=== PATIENT | female | born 1945 | race Caucasian/White ===

== ENCOUNTER 2018-05-10 10:18 | Day surgery (SDC) | payer OTHER ==
[2018-05-10] MEDS ORDERED: GLUCAGON HCL 1 MG VIAL IVP PRN (10:46)
[2018-05-10] MEDS ORDERED: HEPARIN 10,000 UNIT/10 ML MDV (1,000 UNIT/ML) IVP PRN (10:46)
[2018-05-10] MEDS ORDERED: NALOXONE HCL 0.4 MG/ML INJ IVP PRN (10:46)
[2018-05-10] MEDS ORDERED: fentaNYL 100 MCG/2 ML INJ IVP PRN (10:46)
[2018-05-10] MEDS ORDERED: FLUMAZENIL 0.5 MG/5 ML MDV IVP PRN (10:46)
[2018-05-10] MEDS ORDERED: MIDAZOLAM 2 MG/2 ML VIAL IVP PRN (10:46)
[2018-05-10] MEDS ORDERED: PROTAMINE SULFATE 50 MG/5 ML VIAL IVP PRN (10:46)
[2018-05-10] MEDS ORDERED: MEPERIDINE 25 MG/ML SYR IVP PRN (10:46)
[2018-05-10] MEDS ORDERED: ALTEPLASE 2 MG VIAL IVP PRN (10:46)
[2018-05-10] MEDS ORDERED: ceFAZolin 2 GM/DEXTROSE 100 ML IV ONE (10:46)
[2018-05-10] MEDS ORDERED: NS 1,000 ML IV SCH (11:00)
[2018-05-10 11:20] LABS: INR 0.91 (0.83-1.16); PROTIME(PATIENT) 12.5 SEC (12.0-15.0)
[2018-05-10] MEDS ORDERED: LIDOCAINE 1% 300 MG/30 ML SDV ONE (11:49)
[2018-05-10] MEDS ORDERED: oxyCODONE IR 5 MG TAB PO PRN (13:14)
[2018-05-10] MEDS ORDERED: ONDANSETRON 4 MG/2 ML VIAL IVP PRN (13:14)
--- NOTE | 2018-05-10 13:17 | PDRADPRE ---
Radiology History & Physical Indication for procedure: cancer (Mediastinal Mass) Allergies/Adverse Reactions: No Known Allergies Allergy (Unverified 05/09/18 11:07) Mental status: A&Ox3 Heart exam: regular rate and rhythm Lungs exam: clear to auscultation Mallampati Score: Class 2
--- NOTE | 2018-05-10 13:17 | PDPROPOC ---
Sedation Plan of Care Sedation Plan of Care: vital signs stable, mental status noted, patient educated of risks, benefits, alternatives, patient can tolerate sedation ASA Classification: ASA 2 Planned drugs: fentanyl, midazolam Mallampati Score: Class 1 Mallampati Reference Image: Patient passed 3-3-2 rule?: Yes
--- NOTE | 2018-05-10 13:18 | PDRADPN ---
Radiology Procedure Note Date of Procedure: 05/10/18 Radiologist: Ajay Tomlin Anesthesia: IV Sedation Pre-op Diagnosis: Mediastinal mass Post-op Diagnosis: Mediastinal mass Indication: Mediastinal mass Procedure: CT guided biopsy Finding(s): 18 ga cores sent in formalin and saline for possible flow cytometry as clinically warranted. Inf/Abcess present in the surg proc area at time of surgery?: No
[2018-05-10] MEDS ORDERED: ACETAMINOPHEN 500 MG TAB PO ONE (14:26)
[2018-05-10 15:12] VITALS: BP 113/64
== END 2018-05-10 15:32 | disposition home or self-care (01) ==
LOC: FIMAGING 10:18
PROVIDERS: ATTEND Surgery
PROC: BW241ZZ Computerized Tomography (CT Scan) of Chest and Abdomen using Low Osmolar Contrast (ICD-10-PCS; principal; 2018-05-10 13:30)
PROC: 0WBC3ZX Excision of Mediastinum, Percutaneous Approach, Diagnostic (ICD-10-PCS; principal; 2018-05-10 13:30)
DX: R22.2 Localized swelling, mass and lump, trunk (principal)
CPT/HCPCS: 88184-90; 88185-91; J0690; J2250; J2310; J3010

== ENCOUNTER → 2018-06-12 | Outpatient (CLI) | payer OTHER | LOC: FIMAGING 14:13 | PROVIDERS: ATTEND Internal Medicine Hematology & Oncology | DX: Z12.31 Encounter for screening mammogram for malignant neoplasm of breast (principal) ==

== ENCOUNTER 2018-07-16 14:00 | Day surgery (SDC) | payer OTHER ==
--- NOTE | 2018-07-03 09:20 | GHP ---
DATE OF ADMISSION: 07/04/2018 CHIEF COMPLAINT: Mediastinal mass. HISTORY OF PRESENT ILLNESS: This is a 73-year-old female with a history of a mediastinal mass that has been present for approximately a year. 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 Her last CT scan was on 03/04/2018, and showed that the mass had increased in size and now measures 8.8 x 5.5 x 10.4 cm. The patient reports that she is asymptomatic from her mass, she has no shortness of breath and she has normal energy levels. She denies any unintended weight loss, fevers, night sweats. PAST MEDICAL HISTORY: Osteoarthritis, hypothyroidism, irritable bowel syndrome , osteopenia. PAST SURGICAL HISTORY: Appendectomy, knee arthroscopy, tonsillectomy, wisdom teeth extraction. MEDICATION LIST: Biest touche 2.5 mg, levothyroxine 25 mcg, liothyronine 5 mcg , progesterone cream. ALLERGIES: No known drug allergies. FAMILY MEDICAL HISTORY: Positive for hypothyroidism, colon cancer, blood clots. SOCIAL HISTORY: She is a nonsmoker and does not use recreational drugs. REVIEW OF SYSTEMS: 10-point review of systems is negative, aside from what is documented in the HPI. PHYSICAL EXAM: GENERAL: This is a well-appearing 73-year-old female in no acute distress. EYES: Pupils are equal and round. No scleral icterus. HEENT : Normocephalic, atraumatic. No gross hearing deficit. Mucous membranes are moist. CARDIAC: Regular rate and rhythm, no clicks, murmurs, or rubs. RESPIRATORY: Clear to auscultation bilaterally, no increased work of breathing. MUSCULOSKELETAL: Moves all extremities equally. LYMPH: Negative cervical, supraclavicular, and axillary lymphadenopathy. NEURO: Cranial nerves 2-12 are grossly intact. She is alert and oriented x4. PSYCHIATRIC: Appropriate mood and affect. ASSESSMENT AND PLAN: This is a patient with a known mediastinal mass that is biopsy proven to be malignant. Her case was discussed at [facility] and the consensus was that the patient needs further biopsy with a mediastinoscopy. Risks and options have been fully discussed with the patient. Risks of surgery include, but are not limited to infection, bleeding, failure to obtain diagnosis , heart attack, pneumothorax, and . Patient understands and wishes to proceed. We will proceed with mediastinoscopy and biopsy. /[id number]/MODL MTDD
--- NOTE | 2018-07-16 07:06 | PDHPUP ---
History & Physical Update H&P update statement: This history and physical update is based on an assessment of the patient which was completed after admission or registration (within 24 hours), but prior to the surgery/procedure. no changes, reviewed 07/16/2018 H&P update: changes noted (no changes) H&P changes: none
[2018-07-16 08:23] LABS: PLATELET COUNT 278 10^3/uL (150-400)
--- NOTE | 2018-07-16 09:53 | PDANEPAE ---
ANE History of Present Illness mediastinoscopy ANE Past Medical History - Cardiovascular History Hx Hypertension: No Hx Arrhythmias: No Hx Chest Pain: No Hx Coronary Artery / Peripheral Vascular Disease: No Hx CHF / Valvular Disease: No Hx Palpitations: No Cardiovascular History Comment: blood pressure tends to run low - Pulmonary History Hx COPD: No Hx Asthma/Reactive Airway Disease: No Hx Recent Upper Respiratory Infection: No Hx Oxygen in Use at Home: No Hx Sleep Apnea: No Sleep Apnea Screening Result - Last Documented: Negative - Neurologic History Hx Cerebrovascular Accident: No Hx Seizures: No Hx Dementia: No - Endocrine History Hx Diabetes: No Endocrine History Comment: hyopthyroid - Renal History Hx Renal Disorders: No - Liver History Hx Hepatic Disorders: No - Neurological & Psychiatric Hx Hx Neurological and Psychiatric Disorders: No - Cancer History Hx Cancer: Yes Cancer History Comment: mediastinal mass - Congenital Disorder History Hx Congenital Disorders: No - GI History Hx Gastrointestinal Disorders: Yes Gastrointestinal History Comment: hx colitis. gluten sensitivity - Other Health History Other Health History: wears glasses. spot of rash/itch on left leg above ankle - Chronic Pain History Chronic Pain: No - Surgical History Prior Surgeries: arthroscopy left knee. appendectomy. tonsillectomy ANE Review of Systems Review of systems is: negative Review of Systems: - Exercise capacity METS (RN): 5 METS ANE Patient History - Allergies Allergies/Adverse Reactions: No Known Allergies Allergy (Verified 07/10/18 17:33) - Home Medications Home medications: home medication list seen and reviewed Home Medications: Biest 1.25/0.3 Compounded 1 tab PO DAILY 07/10/18 [Last Taken 07/16/18] Herbals/Supplements -Info Only 1 ea PO DAILY 07/10/18 [Last Taken 07/15/18] Levothyroxine [Synthroid 25 mcg (*)] 62.5 mcg PO DAILY06 07/10/18 [Last Taken ] Liothyronine Sodium [Liothyronine Sodium] 10 mcg PO DAILY 07/10/18 [Last Taken 07/15/18] Progesterone 100mg Compounded 100 mg PO HS 07/10/18 [Last Taken 07/15/18] Testosterone 1.3mg Compounded 1.35 mg PO DAILY 07/10/18 [Last Taken 07/16/18] - NPO status NPO Status: no food or drink >8 hours NPO Since - Liquids (Date): 07/16/18 NPO Since - Liquids (Time): 06:00 NPO Since - Solids (Date): 07/15/18 NPO Since - Solids (Time): 20:00 - Anes Hx Anes Hx: no prior problems - Smoking Hx Smoking Status: Never smoked - Family Anes Hx Family Anes Hx: none Family Hx Anesthesia Complications: none ANE Labs/Vital Signs - Labs Result Diagrams: 07/16/18 08:10 07/16/18 08:10 - Vital Signs Vital Signs: reviewed preoperatively; see RN documention for details Blood Pressure: 110/70 Heart Rate: 54 Respiratory Rate: 18 O2 Sat (%): 97 Height: 167.64 cm Weight: 57.606 kg ANE Physical Exam - Airway Neck exam: FROM Mallampati Score: Class 1 Mouth exam: normal dental/mouth exam - Pulmonary Pulmonary: no respiratory distress - Cardiovascular Cardiovascular: regular rate and rhythym - ASA Status ASA Status: II ANE Anesthesia Plan Anesthesia Plan: general endotracheal anesthesia
--- NOTE | 2018-07-16 12:11 | POSTOPPROG ---
Post Op Note Date of Operation: 07/16/18 Surgeon: Yunior Krause Cost Estimating Manager: Macario Cohen Anesthesiologist: Dr Carbajal Anesthesia: GET(General Endotracheal) Pre-op Diagnosis: mediastinal mass Post-op Diagnosis: same Indication: mass Procedure: mediastinal biospy Findings: mass Inf/Abcess present in the surg proc area at time of surgery?: No Depth: Organ Space EBL: Minimal Specimen(s): multiple biopsies performed
--- NOTE | 2018-07-16 12:45 | POSTANESTH ---
Post Anesthetic Evaluation Cardiovascular Status: Normal, Stable, Similar to Pre-Op Cond Respiratory Status: Normal, Stable, Similar to Pre-op Cond. Level of Consciousness/Mental Status: Can Participate in Eval, Alert and Oriented Pain Control: Adequate, Prn Tx Ordered Nausea/Vomiting Control: Adequate, Prn Tx Ordered Complications Possibly Related to Anesthesia: None Noted
[2018-07-16 13:59] VITALS: BP 144/96
[~2018-07-16 14:00] MED LIST: ACETAMINOPHEN 500 MG TAB PO PRN; BUPIVACAINE 0.5% 30 ML SDV ONE; BUPIVACAINE/EPI 0.5% 30 ML SDV ONE; DEXAMETHASONE 4 MG/ML VIAL IVP PRN; DEXAMETHASONE 4 MG/ML VIAL ONE; HYDROCODONE/APAP 5/325 TAB PO PRN; LIDOCAINE 2% 100 MG/5 ML SYR ONE; LR 1,000 ML IV ONE; MEPERIDINE 25 MG/0.5 ML AMP IVP PRN; NALOXONE HCL 0.4 MG/ML INJ IVP PRN; ONDANSETRON 4 MG/2 ML VIAL IVP PRN; ONDANSETRON 4 MG/2 ML VIAL ONE; PROMETHAZINE HCL 25 MG/ML INJ IVP PRN; PROPOFOL 200 MG/20 ML VIAL ONE; THROMBIN (BOVINE) 5,000 UNIT VIAL TP ONE; ceFAZolin 2 GM/DEXTROSE 100 ML IV ONE; fentaNYL 100 MCG/2 ML INJ ONE; oxyCODONE IR 5 MG TAB PO PRN
--- NOTE | 2018-07-19 04:44 | GOP ---
DATE OF OPERATION: 07/16/2018 SURGEON: Yunior Krause MD SUPERVISOR TUMBLING AND ROLLING: RUTHY Hayes. PREOPERATIVE DIAGNOSIS: Mediastinal mass. POSTOPERATIVE DIAGNOSIS: Mediastinal mass, path pending. PROCEDURE PERFORMED: Mediastinoscopy with biopsy of mediastinal mass. FINDINGS: The patient was found to have entire thoracic inlet filled with a large, relatively soft mass extending almost up to the thyroid gland. Several biopsies were sent and confirmed to be malignant tissue, not consistent with thymoma. Final path is pending. DESCRIPTION OF PROCEDURE: The patient was taken to the operating room where she received satisfactory general endotracheal anesthesia. She was placed in the supine position, prepped and draped in usual sterile fashion with her neck extended. A transverse incision was made in the suprasternal notch. Dissection carried down through the subcutaneous tissue and platysma. Strap muscles were in the midline exposing the trachea. Dissection extended down along the anterior surface of the trachea and to the upper mediastinum, but we immediately encountered this fullness and mass. This was carefully dissected free. An attempt was made to identify where the innominate artery would be running. After we were comfortable with our exposure, several biopsies were taken of the mass and sent out for pathologic evaluation. There was an extension of this mass up higher, which was thought at first to be possibly thyroid, and a section was taken out of the center of that mass, but then the thyroid gland was identified even higher. All these lesions were returned as a small cell malignancy. Final path is pending. Hemostasis was carefully obtained with electrocautery. Wounds were irrigated. Some topical thrombin was placed in the surgical cavity as well as some Tom powder, and the wound was closed using 3-0 Vicryl for the muscle approximation and running 3 -0 Vicryl suture for the platysma, and 4-0 Monocryl subcuticular stitch for the skin. /[id number]/MODL MTDD
== END 2018-07-16 14:19 | disposition home or self-care (01) ==
LOC: FSGY 14:00 → UNDODISOB 14:00 → FSGY 14:19
PROVIDERS: ATTEND Surgery
PROC: 0WBC4ZX Excision of Mediastinum, Percutaneous Endoscopic Approach, Diagnostic (ICD-10-PCS; principal; 2018-07-16 09:00)
DX: C38.1 Malignant neoplasm of anterior mediastinum (principal); E03.9 Hypothyroidism, unspecified; M19.90 Unspecified osteoarthritis, unspecified site; K58.9 Irritable bowel syndrome, unspecified
CPT/HCPCS: J0690; J1100; J2001; J2405; J2704; J3010

== ENCOUNTER 2018-08-23 07:11 | Day surgery (SDC) | payer OTHER ==
--- NOTE | 2018-08-21 10:27 | GHP ---
DATE OF ADMISSION: 08/23/2018 CHIEF COMPLAINT: Mediastinal mass. HISTORY OF PRESENT ILLNESS: This is a 73-year-old female who is status post mediastinoscopy with bio psy of mediastinal mass on 07/16/2018. Her pathology is consistent with a poorly differentiated carc inoma most consistent with small cell carcinoma. She will need adjuvant chemotherapy. She presents today for surgical evaluation of port placement. PAST MEDICAL HISTORY: Osteoarthritis, hypothyroidism, irritable bowel syndrome, osteopenia. PAST SURGICAL HISTORY: Appendectomy, knee arthroscopy, tonsillectomy, wisdom teeth extraction, media stinoscopy. MEDICATION LIST: 2.5 mg, levothyroxine 25 mcg, Liothyronine 5 mcg, progesterone cream. ALLERGIES: No known drug allergies. FAMILY MEDICAL HISTORY: Positive for hypothyroidism, colon cancer, blood clots. SOCIAL HISTORY: The patient is a nonsmoker and does not use recreational drugs. REVIEW OF SYSTEMS: A 10-point review of systems was performed and is negative, aside from what is do cumented in the HPI. PHYSICAL EXAM: GENERAL: This is a well-appearing 73-year-old female in no acute distress. EYES: P upils are equal and round. No scleral icterus. HEENT: Normocephalic, atraumatic. No gross hearing deficits. Mucous membranes are moist. CARDIAC: Regular rate and rhythm, no clicks, murmurs, or ru bs. RESPIRATORY: Clear to auscultation bilaterally. No increased work of breathing. MUSCULOSKELET AL: Moves all extremities equally. LYMPH: Negative cervical, supraclavicular, and axillary lymphad enopathy. NEUROLOGIC: Alert and oriented x3. PSYCHIATRIC: Appropriate mood and affect. ASSESSMENT AND PLAN: This is a patient with a mediastinal mass with pathology showing poorly differe ntiated carcinoma, most consistent with small cell carcinoma. She will need a port placed for chemot herapy administration. We discussed all risks and options. Risks of surgery include, but are not li mited to infection, bleeding, pneumothorax, heart attack, and . Patient understands and wishes to proceed. We will proceed with a left chest port placement. /[id number]/MODL
[2018-08-23] MEDS ORDERED: ceFAZolin 2 GM/DEXTROSE 100 ML IV ONE (07:38)
--- NOTE | 2018-08-23 08:16 | PDANEPAE ---
ANE History of Present Illness port placement for chemo for mediastinal mass- small cell ca ANE Past Medical History - Cardiovascular History Hx Hypertension: No Hx Arrhythmias: No Hx Chest Pain: No Hx Coronary Artery / Peripheral Vascular Disease: No Hx CHF / Valvular Disease: No Hx Palpitations: No Cardiovascular History Comment: blood pressure tends to run low - Pulmonary History Hx COPD: No Hx Asthma/Reactive Airway Disease: No Hx Recent Upper Respiratory Infection: No Hx Oxygen in Use at Home: No Hx Sleep Apnea: No Sleep Apnea Screening Result - Last Documented: Negative - Neurologic History Hx Cerebrovascular Accident: No Hx Seizures: No Hx Dementia: No - Endocrine History Hx Diabetes: No Hypothyroid: Yes Hyperthyroid: No Obesity: no Endocrine History Comment: hyopthyroid - Renal History Hx Renal Disorders: No - Liver History Hx Hepatic Disorders: No - Neurological & Psychiatric Hx Hx Neurological and Psychiatric Disorders: No - Cancer History Hx Cancer: Yes Cancer History Comment: mediastinal mass- small cell ca - Congenital Disorder History Hx Congenital Disorders: No - GI History Hx Gastrointestinal Disorders: Yes Gastrointestinal History Comment: hx colitis. gluten sensitivity - Other Health History Other Health History: wears glasses. spot of rash/itch on left leg above ankle - Chronic Pain History Chronic Pain: No - Surgical History Prior Surgeries: MEDIASTINOSCOPY BX. arthroscopy left knee. appendectomy. tonsillectomy ANE Review of Systems Review of systems is: negative Review of Systems: - Exercise capacity Exercise capacity: >=4 METS METS (RN): 4 METS ANE Patient History - Allergies Allergies/Adverse Reactions: No Known Allergies Allergy (Verified 07/10/18 17:33) - Home Medications Home medications: home medication list seen and reviewed Home Medications: Biest 1.25/0.3 Compounded 1 tab PO DAILY 07/10/18 [Last Taken 07/16/18] Herbals/Supplements -Info Only 1 ea PO DAILY 07/10/18 [Last Taken 07/15/18] Levothyroxine [Synthroid 25 mcg (*)] 62.5 mcg PO DAILY06 07/10/18 [Last Taken ] Liothyronine Sodium [Liothyronine Sodium] 10 mcg PO DAILY 07/10/18 [Last Taken 07/15/18] Progesterone 100mg Compounded 100 mg PO HS 07/10/18 [Last Taken 07/15/18] Testosterone 1.3mg Compounded 1.35 mg PO DAILY 07/10/18 [Last Taken 07/16/18] - NPO status NPO Status: no food or drink >8 hours - Anes Hx Anes Hx: no prior problems - Smoking Hx Smoking Status: Never smoked - Family Anes Hx Family Hx Anesthesia Complications: none ANE Labs/Vital Signs - Vital Signs Height: 167.64 cm Weight: 60.328 kg ANE Physical Exam - Airway Neck exam: FROM Mallampati Score: Class 1 Mouth exam: normal dental/mouth exam - Pulmonary Pulmonary: no respiratory distress - Cardiovascular Cardiovascular: regular rate and rhythym - ASA Status ASA Status: III ANE Anesthesia Plan Anesthesia Plan: GA with mask
[2018-08-23] MEDS ORDERED: BUPIVACAINE 0.5% 30 ML SDV ONE (08:21)
--- NOTE | 2018-08-23 08:30 | PDHPUP ---
History & Physical Update H&P update statement: This history and physical update is based on an assessment of the patient which was completed after admission or registration (within 24 hours), but prior to the surgery/procedure. H&P update: H&P reviewed & patient examined, no change in patient's condition since H&P completed
[2018-08-23] MEDS ORDERED: fentaNYL 100 MCG/2 ML INJ ONE (08:47)
[2018-08-23] MEDS ORDERED: PROPOFOL/EMULSION 500 MG/50 ML BOTTLE IV ONE (08:47)
[2018-08-23] MEDS ORDERED: IOTHALAMATE MEG (CONRAY) 50 ML VIAL IV ONE (09:14)
[2018-08-23] MEDS ORDERED: IOPAMIDOL (ISOVUE-M 300) 15 ML VIAL ONE (09:14)
[2018-08-23] MEDS ORDERED: DEXAMETHASONE 4 MG/ML VIAL ONE ×2 (09:23)
[2018-08-23] MEDS ORDERED: ONDANSETRON 4 MG/2 ML VIAL ONE (09:23)
[2018-08-23] MEDS ORDERED: BACITRACIN ZINC 14.2 GM OINTTUBE TP ONE (09:30)
[2018-08-23] MEDS ORDERED: ALBUTEROL 3 ML DEYVIAL IH PRN (09:34)
[2018-08-23] MEDS ORDERED: NALOXONE HCL 0.4 MG/ML INJ IVP PRN (09:34)
[2018-08-23] MEDS ORDERED: fentaNYL 100 MCG/2 ML INJ IVP PRN (09:34)
[2018-08-23] MEDS ORDERED: oxyCODONE IR 5 MG TAB PO PRN (09:34)
[2018-08-23] MEDS ORDERED: PROMETHAZINE HCL 25 MG/ML INJ IVP PRN (09:34)
[2018-08-23] MEDS ORDERED: ACETAMINOPHEN 500 MG TAB PO PRN (09:34)
[2018-08-23] MEDS ORDERED: HYDROmorphONE/DILAUDID 2 MG/ML INJ IVP PRN (09:34)
[2018-08-23] MEDS ORDERED: LABETALOL HCL 5 MG/ML 20 ML MDV IVP PRN (09:34)
[2018-08-23] MEDS ORDERED: METOCLOPRAMIDE 10 MG/2 ML VIAL IVP PRN (09:34)
[2018-08-23] MEDS ORDERED: PHENYLEPHRINE HCL 100 MCG/ML SYR IVP PRN (09:34)
[2018-08-23] MEDS ORDERED: MEPERIDINE 25 MG/0.5 ML AMP IVP PRN (09:34)
--- NOTE | 2018-08-23 09:54 | POSTOPPROG ---
Post Op Note Date of Operation: 08/23/18 Surgeon: Yunior Krause Anesthesiologist: sonia Anesthesia: IV Sedation Pre-op Diagnosis: mediastinal cancer Post-op Diagnosis: same Indication: chemo access Procedure: left subclavian port with flouro Findings: good position and flow Inf/Abcess present in the surg proc area at time of surgery?: No Depth: Deep Incisional (Fascial) EBL: Minimal Complications: 0
[2018-08-23] MEDS ORDERED: ACETAMINOPHEN 500 MG TAB ONE (10:09)
[2018-08-23 11:16] VITALS: BP 135/69
--- NOTE | 2018-08-23 15:57 | POSTANESTH ---
Post Anesthetic Evaluation Cardiovascular Status: Normal, Stable Respiratory Status: Normal, Stable Level of Consciousness/Mental Status: Can Participate in Eval Pain Control: Adequate, Prn Tx Ordered Nausea/Vomiting Control: Adequate, Prn Tx Ordered Complications Possibly Related to Anesthesia: None Noted
== END 2018-08-23 11:20 | disposition home or self-care (01) ==
LOC: FSGY 07:11
PROVIDERS: ATTEND Surgery
PROC: 0JH60XZ Insertion of Tunneled Vascular Access Device into Chest Subcutaneous Tissue and Fascia, Open Approach (ICD-10-PCS; principal; 2018-08-23 08:30)
PROC: BW1J1ZZ Fluoroscopy of Upper Extremity using Low Osmolar Contrast (ICD-10-PCS; principal; 2018-08-23 08:30)
PROC: 02HV33Z Insertion of Infusion Device into Superior Vena Cava, Percutaneous Approach (ICD-10-PCS; principal; 2018-08-23 08:30)
DX: C38.1 Malignant neoplasm of anterior mediastinum (principal); E03.9 Hypothyroidism, unspecified; M19.90 Unspecified osteoarthritis, unspecified site; K58.9 Irritable bowel syndrome, unspecified
CPT/HCPCS: C1788; J0690; J1100; J1642; J2405; J2704; J3010; Q9961; Q9967

== ENCOUNTER → 2018-09-18 | Outpatient (CLI) | payer OTHER | LOC: FIMAGING 16:50 | PROVIDERS: ATTEND Internal Medicine Hematology & Oncology | DX: Z53.9 Procedure and treatment not carried out, unspecified reason (principal) ==

== ENCOUNTER → 2018-09-23 | Outpatient (CLI) | payer OTHER | LOC: FIMAGING 15:05 ==